=== PATIENT | female | born 1995 | race Caucasian/White ===

== ENCOUNTER 2020-06-27 23:20 | Inpatient (IN) ==
[2020-06-27] MEDS ORDERED: PENICILLIN G POTASSIUM 6 MU in DEXTROSE 5% 250 ML IV STA (23:56)
[2020-06-28] MEDS ORDERED: OXYTOCIN 30 UNITS/500 ML BAG IV PRN ×2 (00:02→14:09)
[2020-06-28] MEDS: LACTATED RINGER'S 1,000 ML IV PRN ×3 (00:09→08:51)
[2020-06-28 00:48] LABS: Hematocrit (blood only) 37.9 % (37-47); Hemoglobin 12.6 g/dL (12.0-16.0); Mean Corpuscular Hemoglobin 30.9 pg (25-34); Mean Corpuscular Hgb Conc 33.2 g/dL (32-36); Mean Corpuscular Volume 92.9 fL (80-100); Mean Platelet Volume 13.4 fL (7.4-10.4); Platelet Count 107 K/uL (130-400); RDW Coefficient of Variation 13.5 % (11.5-14.5); RDW Standard Deviation 46.3 fL (36.4-46.3); Red Blood Count 4.08 M/uL (4.2-5.4); White Blood Count 11.79 K/uL (4.8-10.8)
[2020-06-28 00:49] LABS: Platelet Estimate Decreased (Normal)
[2020-06-28] MEDS ORDERED: BUPIVACAINE 0.25% 30 ML VIAL ONE (01:04)
[2020-06-28] MEDS ORDERED: ePHEDrine sulfate 50 MG/ML AMP ONE (01:04)
[2020-06-28] MEDS ORDERED: SODIUM CHLORIDE 0.9% INJ 10 ML VIAL ONE (01:04)
[2020-06-28] MEDS ORDERED: fentaNYL citrate 100 MCG/2 ML VIAL ONE (01:04)
[2020-06-28] MEDS ORDERED: fentaNYL 2MCG/ML ROPIVACAINE 1.25MG/ML 100 ML BAG EPI ONE (01:05)
[2020-06-28] MEDS ORDERED: ONDANSETRON INJ 2 MG/ML 2 ML VIAL IV PRN (01:36)
[2020-06-28] MEDS ORDERED: ePHEDrine sulfate 50 MG/ML AMP IV PRN (01:36)
[2020-06-28] MEDS ORDERED: NALOXONE HCL 1 MG in SODIUM CHLORIDE 0.9% 1000ML 1,000 ML IV PRN (01:36)
[2020-06-28] MEDS ORDERED: NALOXONE HCL 0.4 MG/1 ML VIAL/CARP IV PRN (01:36)
[2020-06-28] MEDS ORDERED: PROMETHAZINE HCL 25 MG in SODIUM CHLORIDE 0.9% 50 ML IV PRN (01:36)
[2020-06-28] MEDS ORDERED: diphenhydrAMINE 50 MG/ML VIAL IV PRN (01:36)
--- NOTE | 2020-06-28 01:36 | Anesthesiology Consultation ---
Date of Service June 28, 2020 Assessment & Plan ASA ASA2 Proposed Anesthesia Anesthesia Type: Labor Epidural Risk / Benefits Reviewed With: PT / POA / Parent / Guardian, Accepts Plan and Informed Consent Obtained Additional Comments: decreased platelets but acceptable. History Height/Weight Height: 5 ft 7 in Weight: 93.894 kg Allergies Allergy/AdvReac Type Severity Reaction Status Date / Time No Known Drug Allergies Allergy Verified 06/26/20 09:14 Medications Home Medications Medication Instructions Recorded Confirmed Last Taken prenat.vits,earnest,kxg-diro-arhxm 1 tab PO DAILY 11/16/19 06/27/20 06/27/20 08:00 Active Medications Generic Name Dose Route Start Last Admin Trade Name Freq PRN Reason Stop Dose Admin Lactated Ringer's 1,000 mls @ 125 mls/hr 06/27/20 23:56 06/28/20 01:10 Lr IV 06/29/20 23:55 999 mls/hr .Q8H PRN Infusion L&D Protocol Protocol Past Medical History Medical History Abnormal biochemical finding on screening of mother, antepartum Abnormal menses Encounter for anatomic survey Varicella vaccine Exercise / Class Metabolic Activity II 4-5 Yardwork/Stairs/Walk up hill Past Family History Family History Grandfather Lupus Colorectal cancer Grandmother Melanoma Other Heart disease Past Surgical History Surgical History [place] teeth removed Past Anesthesia History No Hx of Anesthesia Complications and No Family Hx of Anesthesia Complications History of PONV No Hx of PONV and No Hx of Motion Sickness Social History Smoking Status: Never smoker Do You Dip or Chew Tobacco: No Hx Alcohol Use: No Hx Substance Use: No Review of Systems denies fever/cough/ colds/ chest pain/ SOB/ TALI denies TALI Physical Exam Vital Signs Last Vital Signs Temp 36.7 C 06/27/20 23:38 Pulse 92 H 06/28/20 01:56 Resp 20 06/27/20 23:38 BP 122/83 06/28/20 01:55 Pulse Ox 98 06/28/20 01:56 ENMT Mouth: no TMJ abnormality and no dentition abnormality Thyromental Distance: > or= 3.5 Finger Breadths Mallampati Class: II Neck neck extension not limited Respiratory normal respiratory effort; no respiratory distress Auscultation: lungs clear to auscultation bilaterally Cardiovascular Rate/Rhythm: regular rate and regular rhythm Neurologic moves all extremities Psychiatric Orientation: alert and oriented x 3 Testing Laboratory Results 06/28/20 00:11
[2020-06-28] MEDS: PENICILLIN G POTASSIUM 3 MU in DEXTROSE 5% 100 ML IV PRN ×3 (04:02→12:51)
--- NOTE | 2020-06-28 04:45 | History & Physical Report ---
Date of Service June 28, 2020 Assessment & Plan (1) Prolonged , antepartum: -On admission patient's heart rate tracing category 2 with good accelerations and variability -Patient was very uncomfortable and anesthesia was consulted and an epidural was placed -Because of the GBS status, the patient was started on penicillin with a 6,000,000 unit loading dose then 3,000,000 units every 4 hours -During the second dose of penicillin the patient had rupture of membranes for m econium with a bradycardic episode - heart rate returned to baseline with positional change - scalp electrode was applied -Contractions have been spaced out since the epidural -We will see if the rupture of membranes increase the intensity -May require Pitocin augmentation if heart rate tracing allows Admission and Anticipated Discharge Date Admission Date: June 27, 2020 History of Present Illness Chief Complaint: Labor check Primary Care Provider: NO PCP The patient is a 24-year-old 2 para 0, with an EDC of 25 June by dates and first trimester ultrasound, who presents to labor and delivery at 40+ weeks gestational age in early active labor. Patient states the contractions began at approximately 2000 hrs. on 27 June. Contractions increased in intensity, patient denied leaking of fluid or vaginal bleeding. The patient has had a benign course. Her blood type is A+, antibody negative, rubella immune, hepatitis B negative, she had a negative cell free DNA screen, she declined cystic fibrosis, SMA, and maternal serum AFP. She had an elevated 1 hour Glucola 28 weeks with a normal 2-hour glucose tolerance test. The patient had GBS positive vaginal culture in the first trimester. Allergies Allergy/AdvReac Type Severity Reaction Status Date / Time No Known Drug Allergies Allergy Verified 06/26/20 09:14 Home Medications Medication Instructions Recorded Confirmed Type prenat.vits,earnest,soi-uvkg-duxim 1 tab PO DAILY 11/16/19 06/27/20 History Patient History Medical History Abnormal biochemical finding on screening of mother, antepartum Abnormal menses Encounter for anatomic survey Varicella vaccine Surgical History [place] teeth removed Family History Grandfather Lupus Colorectal cancer Grandmother Melanoma Other Heart disease Social History (Updated 11/16/19 @ 13:44 by Faith Pitt) Smoking Status: Never smoker Second Hand Exposure: No; Do You Dip or Chew Tobacco: No; Hx Alcohol Use: No Hx Substance Use: No Preferred Language: Citizen Of [place] Communication Ability: Effective Regulatory Submissions Associate Required: No Beliefs That Will Affect Care: None marital status: Single marital status details: Fiance: Osman Bowles 24, Current Living Situation: Significant Other Current Living Situation Comment: lives with FOB, 2 dogs,4 horses Other Information That Helps Us Care for You: No Feels Safe at Home: Yes Safety Concerns: Feels Safe At This Time Physical Exam Constitutional: WD/WN, vitals as above Respiratory: Auscultation: lungs clear to auscultation bilaterally Cardiovascular: RRR, no murmur, no edema Extremities: no calf tenderness Gastrointestinal (Abdomen): Abdomen: gravid, vtx, (+) FHT's, EFW 8 lbs Genitourinary: Cervix- 4/90/-2. meconium fluid, FSE applied Results & Data ([facility]) Vital Signs (Past 12 Hours) Vital Signs Temp Pulse Resp BP Pulse Ox 06/28/20 04:41 86 100 06/28/20 04:36 79 99 06/28/20 04:31 83 98 06/28/20 04:30 93 H 139/83 06/28/20 04:26 87 97 06/28/20 04:21 91 H 98 06/28/20 04:16 87 98 06/28/20 04:15 90 114/73 06/28/20 04:11 85 99 06/28/20 04:06 93 H 99 06/28/20 04:01 91 H 99 06/28/20 04:00 82 20 113/72 06/28/20 03:56 80 99 06/28/20 03:51 76 99 06/28/20 03:47 76 113/68 06/28/20 03:46 77 99 06/28/20 03:41 83 99 06/28/20 03:36 73 100 06/28/20 03:31 88 105/57 L 99 06/28/20 03:30 20 06/28/20 03:26 72 99 06/28/20 03:21 80 99 06/28/20 03:16 84 106/65 98 06/28/20 03:11 79 99 06/28/20 03:06 86 99 06/28/20 03:01 74 99 06/28/20 03:00 81 111/73 06/28/20 02:56 78 98 06/28/20 02:51 81 100 06/28/20 02:47 73 124/64 06/28/20 02:46 83 100 06/28/20 02:41 75 99 06/28/20 02:36 81 100 06/28/20 02:32 75 109/72 06/28/20 02:31 75 99 06/28/20 02:30 18 06/28/20 02:26 76 99 06/28/20 02:21 84 99 06/28/20 02:16 87 99 06/28/20 02:15 90 20 129/72 06/28/20 02:11 93 H 98 06/28/20 02:10 86 20 140/81 06/28/20 02:06 91 H 99 06/28/20 02:05 95 H 132/76 06/28/20 02:04 20 06/28/20 02:01 87 98 06/28/20 02:00 98.1 F 91 H 20 136/85 06/28/20 01:56 92 H 98 06/28/20 01:55 95 H 20 122/83 06/28/20 01:53 90 141/98 H 06/28/20 01:52 97 H 127/91 06/28/20 01:51 99 H 99 06/28/20 01:50 110 H 20 151/79 H 06/28/20 01:47 93 H 142/88 H 06/28/20 01:46 106 H 97 06/28/20 01:41 100 H 99 06/28/20 01:36 105 H 99 06/28/20 01:31 94 H 97 06/28/20 01:26 103 H 99 06/28/20 01:21 98 H 99 06/28/20 01:16 99 H 98 06/28/20 01:15 94 H 144/94 H 06/28/20 01:11 91 H 100 06/27/20 23:38 98.1 F 20 06/27/20 23:36 85 130/87 12/15/20 23:35 98.1 F 20 Coding Level of Care Code None Diagnoses Prolonged , antepartum O48.1
[2020-06-28] MEDS: fentaNYL 2MCG/ML ROPIVACAINE 1.25MG/ML 100 ML BAG EPI PRN ×2 (08:46→14:31)
[2020-06-28] MEDS: OXYTOCIN 30 UNITS/500 ML BAG IV PRN ×2 (13:45→14:35)
[2020-06-28] MEDS ORDERED: BENZOCAINE 20% AER SPR 82.5 GM CAN EXT PRN (14:09)
[2020-06-28] MEDS ORDERED: bisacodyL 10 MG SUPP PR PRN (14:09)
[2020-06-28] MEDS ORDERED: ACETAMINOPHEN 325 MG TAB PO PRN (14:09)
[2020-06-28] MEDS ORDERED: SUPERCREAM 0.870% 15 GM JAR EXT PRN (14:09)
[2020-06-28] MEDS ORDERED: HYDROCORTISONE ACETATE 25 MG SUPP PR PRN (14:09)
[2020-06-28 14:59] LABS: Platelet Count 88 K/uL (130-400); Platelet Estimate Decreased (Normal)
--- NOTE | 2020-06-28 15:42 | Anesthesia Procedure Note ---
Date of Service June 28, 2020 Anesthesia Post Epidural Note Vital Signs Vital Signs: Temp Pulse Resp BP Pulse Ox 36.4 C L 92 H 18 120/78 95 06/28/20 12:53 06/28/20 15:30 06/28/20 15:30 06/28/20 15:30 06/28/20 13:36 Notes Mental Status: alert / awake / arousable Nausea / Vomiting: adequately controlled Pain: adequately controlled Airway Patency, RR, SpO2: stable & adequate BP & HR: stable & adequate Hydration State: stable & adequate Neuraxial Anesthesia: was administered and sensory block is resolving Anesthetic Complications: no major complications apparent and Pt Satisfied with anesthetic care Epidural: Removed without complications and With tip intact
[2020-06-28] MEDS: IBUPROFEN 600 MG TAB PO PRN ×2 (15:45→19:53)
--- NOTE | 2020-06-28 16:30 | Delivery Summary ---
DATE OF OPERATION: 06/28/2020 PROCEDURE: Normal spontaneous vaginal delivery with sulcal laceration and periurethral laceration repair. SURGEON: Earle Everett MD. PREOPERATIVE DIAGNOSES: 1. Single intrauterine at 40 weeks 3 days gestational age. 2. Group B Streptococcus positive. 3. Labor. POSTOPERATIVE DIAGNOSES: 1. Single intrauterine at 40 weeks 3 days gestational age. 2. Group B Streptococcus positive. 3. Labor. 4. Status post procedure. ESTIMATED BLOOD LOSS: 300 mL. DRAINS: Straight cath at the completion of the case for 100 mL. URINE OUTPUT: As above. COMPLICATIONS: None. FINDINGS: Viable with weight pending and Apgars of 7 and 9 at one and five minutes respectively. DESCRIPTION OF PROCEDURE: The patient progressed to 10 cm dilated, 100% effaced, +2 station, pushed over an intact perineum with epidural anesthesia and delivered a viable with weight and Apgars as noted above. Head of the delivered in SHAYAN position, restituted to right transverse. A nuchal cord was noted, which was easily reduced. Body and shoulders quickly followed. was delivered to the maternal abdomen and after approximately 15-20 seconds of stimulation, was noted to become vigorous. A 1-minute delayed cord clamping was then initiated, after which the cord was double clamped and cut. remained on maternal abdomen. Cord blood was then obtained. Attention was then turned towards delivery of the placenta, which delivered intact with 3-vessel cord, gentle cord traction. On inspection of perineum, vagina, and cervix, there was noted to be a left sulcal laceration and a periurethral laceration. Both lacerations were repaired with 3-0 Vicryl with interrupted stitch. Needle, sponge and instrument counts were correct at the completion of the case. Both mother and were stable in the immediate post-delivery period. I attest to the content of the Intraoperative Record and any orders documented therein. Any exception s are noted below.
[2020-06-28] MEDS ORDERED: DOCUSATE SODIUM 100 MG CAP PO ONE (19:51)
[2020-06-28] MEDS: DOCUSATE SODIUM 100 MG CAP PO SCH (19:53)
[2020-06-29] MEDS: IBUPROFEN 600 MG TAB PO PRN ×3 (04:05→16:37)
--- NOTE | 2020-06-29 07:05 | Obstetrical Progress Note ---
Date of Service <Kyler Chaudhari MD - Last Filed: 06/29/20 08:07> June 29, 2020 Assessment & Plan <Kyler Chaudhari MD - Last Filed: 06/29/20 08:07> (1) state: 24 y/o s/p at 40w3d, PPD1. A+. Rubella immune. Stable. - Meeting PPD1 milestones except for bowel movement. Ambulating, voiding, eating. . - continue routine care - tentative dispo tomorrow because this is patient's first delivery (2) Thrombocytopenia: - Hb 12.6->9.9 before vs after delivery - Plts 107->88 before vs after delivery. - no hx chtn. normotensive this AM at 121/77. 147/95 elevated BP x1 yesterday evening. Occasional elevated BP during labor admission. consider preeclampsia workup Subjective <Kyler Chaudhari MD - Last Filed: 06/29/20 08:07> Ambulation: ambulating normally Voiding: no voiding problems Passing Gas:: Yes Diet Tolerance:: regular diet Lochia:: Moderate Feeding Type:: breast feeding Current Pain Level(1-10): 2 + flatus, no BM. Tolerating regular diet. No complaints. Review of Systems Denies fever, chills, sweats Denies shortness of breath, chest pain, palpitations. Denies breast pain. Denies dysuria. Denies headache Denies nausea/vomiting. Denies numbness, tingling, weakness. Physical Exam <Kyler Chaudhari MD - Last Filed: 06/29/20 08:07> General: Alert, oriented. No acute distress. Cardiac: Regular rate and rhythm, no murmurs/rubs/gallops. Respiratory: Clear to auscultation bilaterally, no wheezes/rales/rhonchi. No respiratory distress. Abdomen: , soft, nontender. Uterus: Uterine fundus firm, palpable 1cm below umbilicus. Lower Extremities: Trace pedal edema. No deep calf pain. Socrates's negative bilaterally. Results & Data ([facility]) <Kyler Chaudhari MD - Last Filed: 06/29/20 08:07> Vital Signs (Past 12 Hours) Vital Signs Temp Pulse Pulse Resp BP BP Pulse Ox 06/29/20 03:15 36.5 C 79 16 121/77 97 06/28/20 23:45 36.4 C L 86 20 118/69 97 06/28/20 19:45 36.9 C 93 H 18 147/95 H 97 Medications Administered <Earle Everett MD - Last Filed: 06/29/20 09:22> Co-Signing Physician Notes Patient seen and evaluated and agree with the above findings and plan. Will continue to monitor BPs which have been normotensive since delivery. Denies PIH symptoms. Routine care
[2020-06-29 07:18] LABS: Hematocrit (blood only) 29.8 % (37-47); Hemoglobin 9.9 g/dL (12.0-16.0)
[2020-06-29] MEDS: PRENATAL VITAMIN 1 TAB PO SCH (08:35)
[2020-06-29] MEDS: DOCUSATE SODIUM 100 MG CAP PO SCH ×2 (08:35→21:19)
[2020-06-29] MEDS ORDERED: DIPHTHERIA/TETANUS/PERTUSSIS 0.5 ML SYR/VIAL IM ONE (09:00)
[2020-06-29] MEDS ORDERED: bisacodyL 5 MG TABEC PO SCH (20:00)
[2020-06-30] MEDS: IBUPROFEN 600 MG TAB PO PRN ×2 (02:26→08:33)
--- NOTE | 2020-06-30 06:41 | Obstetrical Progress Note ---
Date of Service <Kyler Chaudhari MD - Last Filed: 06/30/20 06:51> June 30, 2020 Assessment & Plan <Kyler Chaudhari MD - Last Filed: 06/30/20 06:51> (1) state: 24 y/o s/p at 40w3d, PPD2. A+. Rubella immune. Stable. - Meeting milestones. Ambulating, voiding, eating. Had BM. . - continue routine care - dispo today. (2) Thrombocytopenia: - Hb 12.6->9.9 before vs after delivery - Plts 107->88 before vs after delivery. - no hx chtn. BPs ok overnight. - check CBC at follow up. Subjective <Kyler Chaudhari MD - Last Filed: 06/30/20 06:51> Ambulation: ambulating normally Voiding: no voiding problems Passing Gas:: Yes Diet Tolerance:: regular diet Lochia:: Moderate Feeding Type:: breast feeding Current Pain Level(1-10): 0 Motrin is helping with pain. Lochia is moderate, but slowing down some. No new concerns today. Review of Systems Denies fever, chills, sweats Denies shortness of breath, chest pain, palpitations. Denies breast pain. Denies dysuria. Denies headache or changes in vision. Denies nausea/vomiting. Denies numbness, tingling, weakness. Physical Exam <Kyler Chaudhari MD - Last Filed: 06/30/20 06:51> General: Alert, oriented. No acute distress. Cardiac: Regular rate and rhythm, no murmurs/rubs/gallops. Respiratory: Clear to auscultation bilaterally, no wheezes/rales/rhonchi. No respiratory distress. Abdomen: , soft. Uterus: Uterine fundus firm, palpable at umbilicus. Lower Extremities: No lower extremity edema or swelling. No deep calf pain. Socrates's negative bilaterally. Results & Data ([facility]) <Kyler Chaudhari MD - Last Filed: 06/30/20 06:51> Vital Signs (Past 12 Hours) Vital Signs Temp Pulse Resp BP 06/30/20 03:50 36.3 C L 70 20 137/87 06/30/20 00:20 36.8 C 108 H 16 123/82 06/29/20 21:05 37 C 92 H 18 121/82 Medications Administered <Oliva Belcher MD - Last Filed: 06/30/20 07:17> Co-Signing Physician Notes Resident Physician Supervision Note: I interviewed and examined the patient. Discussed with Dr. Chaudhari and agree with findings and plan as documented in the note. Any exceptions or clarifications are listed here: PP2 s/p . Doing well and meeting all pp milestones. Stable for discharge home today Documented By: Oliva Belcher MD
[2020-06-30] MEDS: DOCUSATE SODIUM 100 MG CAP PO SCH (08:33)
[2020-06-30] MEDS: PRENATAL VITAMIN 1 TAB PO SCH (08:33)
== END 2020-06-30 11:40 | disposition home or self-care (01) | DRG 806 ==
LOC: 4S1 23:20 → OPB 23:20 → 4S1 23:56 → 4S2 06-28 17:25

== ENCOUNTER 2022-01-11 12:43 | Inpatient (IN) ==
[2022-01-11] MEDS ORDERED: LACTATED RINGER'S 1,000 ML IV SCH ×2 (13:45→17:53)
[2022-01-11 14:26] LABS: Basophils # (auto) 0.01 K/uL (0-0.2); Basophils % (auto) 0.1 %; Eosinophils # (auto) 0.03 K/uL (0-0.5); Eosinophils % (auto) 0.3 %; Hematocrit (blood only) 33.2 % (37-47); Hemoglobin 10.9 g/dL (12.0-16.0); Immature Granulocytes # (auto) 0.04 K/uL (0.00-0.02); Immature Granulocytes % (auto) 0.4 %; Lymphocytes # (auto) 1.48 K/uL (1.2-3.4); Lymphocytes % (auto) 14.7 %; Mean Corpuscular Hemoglobin 29.4 pg (25-34); Mean Corpuscular Hgb Conc 32.8 g/dL (32-36); Mean Corpuscular Volume 89.5 fL (80-100); Mean Platelet Volume 11.8 fL (7.4-10.4); Neutrophils % (auto) 80.5 %; Platelet Count 147 K/uL (130-400); RDW Coefficient of Variation 13.2 % (11.5-14.5); RDW Standard Deviation 43.3 fL (36.4-46.3); Red Blood Count 3.71 M/uL (4.2-5.4); White Blood Count 10.06 K/uL (4.8-10.8)
[2022-01-11] MEDS ORDERED: MoRPHine SULFATE PF 1 MG/ML 10 ML AMP/VIAL ONE (14:43)
[2022-01-11] MEDS ORDERED: fentaNYL citrate 100 MCG/2 ML VIAL ONE (14:43)
--- NOTE | 2022-01-11 14:53 | Anesthesiology Consultation ---
Date of Service January 11, 2022 Assessment & Plan (1) Encounter for pre-operative examination: Chart Review Chart Review: Acceptable Risk for Surgery and Patient NOT seen in Pre Admission Testing Consults Requested none History Surgery Operation Date: 01/11/22 13:00 Proposed Procedures p Section in LD - Shanna MackayDO dewey Height/Weight Height: 5 ft 7 in Weight: 91.172 kg Allergies Allergy/AdvReac Type Severity Reaction Status Date / Time No Known Drug Allergies Allergy Verified 01/11/22 09:19 Medications Home Medications Medication Instructions Recorded Confirmed Last Taken prenat.vits,earnest,kva-hhct-fmlkn 1 tab PO DAILY 11/16/19 01/11/22 07/18/21 acetaminophen 325 mg tablet 650 mg PO Q6H PRN 07/19/21 01/11/22 Unknown Past Medical History Medical History Abnormal biochemical finding on screening of mother, antepartum Abnormal menses Encounter for anatomic survey Varicella vaccine Exercise / Class Metabolic Activity II 4-5 Yardwork/Stairs/Walk up hill Past Family History Family History Grandfather Lupus Colorectal cancer Grandmother Melanoma Grandfather (Paternal) Diabetes Other Heart disease Denies family history of Ovarian cancer Breast cancer Past Surgical History Surgical History [place] teeth removed Past Anesthesia History No Hx of Anesthesia Complications and No Family Hx of Anesthesia Complications History of PONV No Hx of PONV and No Hx of Motion Sickness Social History Smoking Status: Never smoker Do You Dip or Chew Tobacco: No Hx Alcohol Use: No Hx Substance Use: No substance use type: does not use Physical Exam Vital Signs Last Vital Signs Temp 36.9 C 01/11/22 14:33 Pulse 93 H 01/11/22 12:50 Resp 20 01/11/22 14:33 BP 121/71 01/11/22 12:50 Testing Laboratory Results 01/11/22 14:08
[2022-01-11] MEDS ORDERED: CITRIC ACID/SODIUM CITRATE 15 ML UDC PO SCH (15:15)
[2022-01-11] MEDS ORDERED: ceFAZolin 2000MG 2,000 MG/15 ML SYR IV SCH (15:16)
--- NOTE | 2022-01-11 15:30 | History & Physical Report ---
Date of Service January 11, 2022 Assessment & Plan (1) Oligohydramnios: (2) Breech presentation: Plan: Admit to L&D. Discussed plans with patient. Reviewed risks, benefits, alternatives. Plan is for primary section for breech, with tubal sterilization. Discussed that we will look at her tubes when we are in the OR - she would prefer removal of tubes if possible, agreeable to Filshie clips if unable to remove tubes d/t anatomy. Admission and Anticipated Discharge Date Admission Date: January 11, 2022 History of Present Illness Chief Complaint: oligohydramnios, breech presentation Primary Care Provider: NO PCP 26yo @ 36 12/18, presented to office today for US for SAMANTHA/DVP. She was undergoing the US d/t breech presentation, in advance of external cephalic version. She was found to be breech, but there was only one measurable DVP, measuring 1.5cm. She was directed to L&D for delivery d/t oligohydramnios. She also desires tubal sterilization - states she has completed childbearing, has no desire for future pregnancies. She is aware that undergoing tubal sterilization will render her unable to have future children. She has previously signed informed consent in the office under no duress. Allergies Allergy/AdvReac Type Severity Reaction Status Date / Time No Known Drug Allergies Allergy Verified 01/11/22 09:19 Home Medications Medication Instructions Recorded Confirmed Type prenat.vits,earnest,lcm-aahj-dtutl 1 tab PO DAILY 01/11/22 01/11/22 History Patient History Medical History Abnormal biochemical finding on screening of mother, antepartum Abnormal menses Encounter for anatomic survey Varicella vaccine Surgical History [place] teeth removed Family History Grandfather Lupus Colorectal cancer Grandmother Melanoma Grandfather (Paternal) Diabetes Other Heart disease Denies family history of Ovarian cancer Breast cancer Social History Smoking Status: Never smoker Second Hand Exposure: No; Do You Dip or Chew Tobacco: No; Hx Alcohol Use: No Hx Substance Use: No Preferred Language: [place] Communication Ability: Effective Document Control Specialist Required: No Beliefs That Will Affect Care: None marital status: Single marital status details: Fiance: Osman Bowles 26, Current Living Situation: Significant Other Current Living Situation Comment: lives with FOB, daughter, 2 dogs current occupational status: employed current occupation: Private Contractor Other Information That Helps Us Care for You: No Feels Safe at Home: Yes Safety Concerns: Feels Safe At This Time Assistive Devices: None Review of Systems All systems reviewed & are unremarkable except as noted in HPI & below Physical Exam Physical Exam: FHT Cat 1 [place] none Constitutional: WD/WN, vitals as above Respiratory: normal respiratory effort, lungs clear to auscultation no respiratory distress Cardiovascular: Rate/Rhythm: regular rate and regular rhythm Gastrointestinal (Abdomen): Inspection/Auscultation: abdomen normal to inspection Percussion/Palpation: abdomen soft; abdomen nontender Gravid. No s/s chorio or abruption. Skin: no rashes, warm and dry Psychiatric: A+Ox3, euthymic affect Results & Data ([facility]) Vital Signs (Past 12 Hours) Vital Signs Temp Pulse Resp BP 01/11/22 15:25 96 H 129/78 01/11/22 14:33 36.9 C 20 01/11/22 12:50 36.9 C 93 H 20 121/71 Code Status & VTE Plan VTE Prophylaxis Plan VTE Prophylaxis will be ordered: Yes Coding Level of Care Code None Diagnoses Oligohydramnios O41.00X0 Breech presentation O32.1XX0
[2022-01-11] MEDS ORDERED: BETAMETH SOD PHOS/ACETATE IA 6 MG/ML IM STA (15:36)
[2022-01-11] MEDS ORDERED: OXYTOCIN 10 UNITS/ML 10ML VIAL ONE (16:13)
[2022-01-11] MEDS ORDERED: ONDANSETRON INJ 2 MG/ML 2 ML VIAL ONE (16:13)
[2022-01-11] MEDS ORDERED: PHENYLEPHRINE HCL 10 MG/ML VIAL ONE (16:13)
[2022-01-11] MEDS ORDERED: NALOXONE HCL 0.08 MG in SYRINGE 1.8 ML IV PRN (16:27)
[2022-01-11] MEDS ORDERED: NALOXONE HCL 1 MG in SODIUM CHLORIDE 0.9% 1000ML 1,000 ML IV PRN (16:27)
[2022-01-11] MEDS ORDERED: NALBUPHINE HCL INJ 10 MG/ML AMP IV PRN (16:27)
[2022-01-11] MEDS ORDERED: LACTATED RINGER'S 500 ML IV PRN (16:27)
[2022-01-11] MEDS ORDERED: diphenhydrAMINE 50 MG/ML VIAL IV PRN (16:27)
[2022-01-11] MEDS ORDERED: ONDANSETRON INJ 2 MG/ML 2 ML VIAL IV PRN ×2 (16:27→17:53)
[2022-01-11] MEDS ORDERED: PROMETHAZINE HCL 6.25 MG in SODIUM CHLORIDE 0.9% 50 ML IV PRN (16:27)
[2022-01-11] MEDS ORDERED: MoRPHine SULFATE PF 1 MG/ML 10 ML AMP/VIAL INT SPINAL ONE (16:27)
[2022-01-11] MEDS ORDERED: HYDROmorphone INJ 0.5 MG/0.5 ML SYR IV PRN (16:27)
[2022-01-11] MEDS ORDERED: ePHEDrine sulfate 50 MG/ML AMP IV PRN (16:27)
[2022-01-11] MEDS ORDERED: MoRPHine SULFATE 2 MG/ML CARP IV PRN (16:27)
[2022-01-11] MEDS ORDERED: NALOXONE HCL 0.4 MG/1 ML VIAL/CARP IV PRN (16:27)
[2022-01-11] MEDS ORDERED: SODIUM CHLORIDE 0.9% 1000ML 1,000 ML IV SCH (16:30)
[2022-01-11] MEDS ORDERED: NO NARCOTICS OR SEDATIVES SCH (16:30)
[2022-01-11 17:27] LABS: Base Excess Cord Arterial Bld -1.5 mEq/L (-9-1.8); CO2 Cord Arterial Blood 47 mmHg (39.1-73.5); HCO3 Cord Arterial Blood 25 mmol/L (19.7-28.5); Oxygen Sat Cord Arterial Blood < 60.0 % (<60); PO2 Cord Arterial Blood 23 mmHg (4.1-31.7); pH Cord Arterial Blood 7.33 (7.1-7.38)
[2022-01-11 17:30] LABS: Base Excess Cord Venous Blood -1.3 mEq/L (-7.7-1.9); Cord Venous Blood HCO3 24 mmol/L (18.4-26.8); Cord Venous Blood PCO2 40 mmHg (30.4-57.2); Cord Venous Blood PO2 31 mmHg (14.1-43.3); Cord Venous Blood pH 7.38 (7.20-7.44); O2 Saturation Cord Venous Bld 64.9 % (<68)
--- NOTE | 2022-01-11 17:33 | Operative Report ---
PG Post Operative Report Pre & Post Diagnosis Operation Date: 01/11/22 13:00 Pre-Op Diagnosis: 36 weeks oligohydramnios breech presentation Post-Op Diagnosis: 36 weeks oligohydramnios breech presentation I identified the patient and participated in the time-out.: Yes Procedure Operation Date: 01/11/22 13:00 Primary low transverse section, bilateral salpingectomy Surgeon Shanna Brito DO Client Advocate Sami Cain DO Estimated Blood Loss 500 Findings Consistent with Post-Op Diagnosis Viable female , Apgars 9/9. Weight pending, please see nursing notes. Specimens Placenta, cord blood, cord gas. Drains potts clear yellow Anesthesia Type Spinal Complications none Disposition Accompanied Patient To Recovery: No Disposition: L&D Indications 26yo @ 36 6, breech presentation and oligohydramnios, desire for tubal sterilization. Description of Procedure The patient was seen in her labor and delivery room, risks benefits and alternatives to surgery were reviewed. Informed consent obtained. Questions were answered. She was taken to the operating room, spinal anesthesia was administered. She was then prepared and draped in the usual sterile fashion in the supine position with a leftward tilt. Timeout was confirmed. A Pfannenstiel skin incision was made with a scalpel, and carried through to the underlying layer of fascia. Fascia was nicked at midline, and this incision was extended bilaterally. The superior aspect of the fascial incision was grasped with Adriane clamps x2, elevated off the underlying rectus abdominis muscles, and dissected sharply and bluntly. In similar fashion, the inferior aspect of the fascial incision was dissected. The rectus abdominis muscles were , and the peritoneum was entered bluntly digitally. This was extended bilaterally. The bladder flap was taken down carefully using Metzenbaum scissors. Using a new scalpel, a low transverse uterine incision was created. Clear amniotic fluid noted. The was delivered from a benjy breech presentation. The buttocks delivered, followed by both legs swept midline. then the torso was delivered and bilateral arms swept midline. The baby was wrapped in a towel and the head was delivered. Spontaneous cry on the field. The cord was doubly clamped and cut, and the was handed off to the waiting felt checker. A segment was retained for cord gases. Cord blood was obtained. The placenta was delivered spontaneously intact. The uterus was exteriorized, and cleared of all clots and debris. The hysterotomy incision was reapproximated using 0 Vicryl in a running locked stitch. A second layer of the same suture was used to imbricate the incision. Posterior uterus was evaluated and normal. Bilateral fallopian tubes were identified to their fimbria. Using the Ligasure device, the right fallopian tube was coagulated and transected from its mesosalpinx. This was then coagulated and transected from the uterus. In a similar fashion, left fallopian tube was transected. Both were sent to path. Excellent hemostasis. The uterus was returned to the abdomen, and gutters were cleared of clots and debris. Excellent hemostasis was observed. The fascial incision was reapproximated using 0 Vicryl in a running stitch. The subcutaneous tissue was irrigated, and reapproximated using 2-0 plain gut in a running stitch. The skin was reapproximated using 4-0 Vicryl in a running subcuticular stitch. Steri-Strips and a bandage were applied. The patient tolerated the procedure well, and will be taken to the recovery area in stable and good condition. Sponge, needle, instrument counts correct x 2. I attest to the content of the Intraoperative Record and any orders documented therein. Any exceptions are noted below. OB Procedure Charges [id number] Add on Tubal for C/S
[2022-01-11] MEDS ORDERED: DIPHTHERIA/TETANUS/PERTUSSIS 0.5 ML SYR/VIAL IM ONE (17:53)
[2022-01-11] MEDS ORDERED: PROMETHAZINE HCL 25 MG in SODIUM CHLORIDE 0.9% 50 ML IV PRN (17:53)
[2022-01-11] MEDS ORDERED: SENNA 8.6 MG TAB PO PRN (17:53)
[2022-01-11] MEDS ORDERED: BENZOCAINE 20% AER SPR 82.5 GM CAN EXT PRN (17:53)
[2022-01-11] MEDS ORDERED: HYDROCORTISONE ACETATE 25 MG SUPP PR PRN (17:53)
[2022-01-11] MEDS ORDERED: MAGNESIUM HYDROXIDE SUSP 30 ML UDC PO PRN (17:53)
--- NOTE | 2022-01-11 18:21 | Anesthesiology Progress Note ---
Date of Service January 11, 2022 Anesthesia Post Procedure Vital Signs Vital Signs: Temp Pulse Resp BP Pulse Ox 01/11/22 18:19 78 107/67 01/11/22 18:15 18 01/11/22 18:14 62 97 01/11/22 18:09 68 104/62 95 01/11/22 18:05 18 01/11/22 18:04 64 98 01/11/22 17:59 74 111/58 L 98 01/11/22 17:55 18 01/11/22 17:54 63 99 01/11/22 17:50 76 94 01/11/22 17:49 69 107/56 L 96 01/11/22 17:44 80 98 01/11/22 17:39 62 108/56 L 97 01/11/22 17:35 36.5 C 75 18 109/60 01/11/22 17:34 105 H 96 01/11/22 15:33 36.8 C 18 01/11/22 15:25 96 H 129/78 01/11/22 14:33 36.9 C 20 01/11/22 12:50 36.9 C 93 H 20 121/71 Transfer of Care Handoff Completed per policy Notes Mental Status: alert / awake / arousable and participated in evaluation Patient Amnestic to Procedure: No Nausea / Vomiting: adequately controlled Pain: adequately controlled Airway Patency, RR, SpO2: stable & adequate BP & HR: stable & adequate Hydration State: stable & adequate Neuraxial Anesthesia: was administered and sensory block is resolving Anesthetic Complications: no major complications apparent and Pt Satisfied with anesthetic care
[2022-01-11] MEDS: KETOROLAC 30 MG/ML VIAL IV PRN (18:27)
[2022-01-11] MEDS: OXYTOCIN 30 UNITS in LACTATED RINGER'S 1,000 ML IV SCH (19:21)
[2022-01-11] MEDS: SIMETHICONE 80 MG CHEW PO SCH (21:20)
[2022-01-11] MEDS: DOCUSATE SODIUM 100 MG CAP PO SCH (21:20)
[2022-01-12] MEDS: OXYTOCIN 30 UNITS in LACTATED RINGER'S 1,000 ML IV SCH (03:49)
[2022-01-12] MEDS: KETOROLAC 30 MG/ML VIAL IV PRN ×2 (03:49→09:32)
[2022-01-12] MEDS ORDERED: ceFAZolin 2000MG 2,000 MG/15 ML SYR IV SCH (06:00)
--- NOTE | 2022-01-12 07:09 | Obstetrical Progress Note ---
Date of Service January 12, 2022 Assessment & Plan (1) Encounter for care and examination after delivery: Plan: Patient is a 26-year-old female who delivered via at 36 and 6/7 weeks gestation with salpingectomy, postoperative day 1. complicated by oligohydramnios/breech position. -Continue routine care, keep today -GBS-, A+, antibody negative, rubella immune -Pain controlled with Percocet -Voiding trial later today -Encouraged ambulation -continue bottle feeding -6-week follow-up with Dr. Brito Admission and Anticipated Discharge Date Admission Date: January 11, 2022 Supervising Physician Co-Signing Physician Notes Resident Physician Supervision Note: I was present with Dr. Cain during the history and exam. I discussed the case with the resident and agree with the findings and plan as documented in the note. Any exceptions or clarifications are listed here: POD#1 doing well. Routine recovery. Documented By: Shanna Brito, DO Subjective Patient is a 26-year-old female who delivered via at 36 and 6/7 weeks gestation with salpingectomy, postoperative day 1. complicated by oligohydramnios/breech position. Patient overall doing well today. Pain controlled with Percocet. Medina catheter still in place so the patient has not been able to ambulate around the room. Patient has been able to eat and drink without nausea or vomiting. Patient is bottlefeeding baby. Lochia moderate and improving. Otherwise denies fever, chills, chest pain, shortness of breath, UTI symptoms, or headache. Patient has no other complaints at this time. Review of Systems Review of Systems: All systems reviewed & are unremarkable except as noted in HPI & below Physical Exam Constitutional: WD/WN, vitals as above Eyes: + anicteric sclerae Neck: trachea midline, no thyromegaly Respiratory: normal respiratory effort, lungs clear to auscultation Cardiovascular: RRR, no murmur, no edema Gastrointestinal (Abdomen): Inspection/Auscultation: abdomen normal to inspection Percussion/Palpation: + abdomen tender and abdomen soft Musculoskeletal: Head/Neck/Chest: normocephalic and head atraumatic Skin: no rashes, warm and dry There is a dry, healing surgical incision at the inferior abdomen without surrounding erythema or discharge Neurologic: moves all extremities Psychiatric: A+Ox3, euthymic affect Genitourinary: Uterine fundus palpated at the level of the umbilicus, firm Results & Data ([facility]) Vital Signs (Past 12 Hours) Vital Signs Temp Pulse Pulse Resp BP BP Pulse Ox 01/12/22 04:00 18 96 01/12/22 03:39 36.6 C 80 16 115/73 96 01/12/22 03:00 18 95 01/12/22 02:00 20 96 01/12/22 01:00 16 95 01/12/22 00:00 16 95 01/11/22 23:14 36.6 C 75 16 124/76 95 01/11/22 23:00 16 95 01/11/22 22:00 16 96 01/11/22 21:00 16 95 01/11/22 20:00 16 95 01/11/22 19:09 74 97/59 L 95 01/11/22 19:05 18 01/11/22 19:04 75 96 01/11/22 19:03 78 93 01/11/22 18:59 79 104/64 97 01/11/22 18:54 91 H 97 01/11/22 18:52 74 93 01/11/22 18:49 71 106/67 97 01/11/22 18:44 70 98 01/11/22 18:39 75 105/65 96 01/11/22 18:35 73 18 93 01/11/22 18:34 75 95 01/11/22 18:29 71 107/66 96 01/11/22 18:25 18 01/11/22 18:24 71 96 01/11/22 18:19 79 107/67 98 01/11/22 18:15 18 01/11/22 18:14 62 97 01/11/22 18:09 68 104/62 95 01/11/22 18:05 18 01/11/22 18:04 64 98 01/11/22 17:59 74 111/58 L 98 01/11/22 17:55 18 01/11/22 17:54 63 99 01/11/22 17:50 76 94 01/11/22 17:49 69 107/56 L 96 01/11/22 17:44 80 98 01/11/22 17:39 62 108/56 L 97 01/11/22 17:35 36.5 C 75 18 109/60 01/11/22 17:34 105 H 96
[2022-01-12] MEDS: PRENATAL VITAMIN 1 TAB PO SCH (08:38)
[2022-01-12] MEDS: DOCUSATE SODIUM 100 MG CAP PO SCH ×2 (08:38→20:59)
[2022-01-12] MEDS: FERROUS SULFATE 325 MG TAB PO SCH (08:38)
[2022-01-12] MEDS: SIMETHICONE 80 MG CHEW PO SCH ×4 (08:38→20:59)
[2022-01-12] MEDS ORDERED: NON-FORMULARY MEDICATION (Prenat.Vits,Cal,Min-Iron-Folic Tablet) PO SCH (09:00)
[2022-01-12 09:13] LABS: Hematocrit (blood only) 30.4 % (37-47); Hemoglobin 10.2 g/dL (12.0-16.0); Immature Granulocytes # (auto) 0.07 K/uL (0.00-0.02); Immature Granulocytes % (auto) 0.5 %; Lymphocytes # (auto) 1.29 K/uL (1.2-3.4); Mean Corpuscular Hemoglobin 29.1 pg (25-34); Mean Corpuscular Hgb Conc 33.6 g/dL (32-36); Mean Corpuscular Volume 86.6 fL (80-100); Mean Platelet Volume 11.8 fL (7.4-10.4); Monocytes # (auto) 0.81 K/uL (0.11-0.59); Monocytes % (auto) 5.6 %; Neutrophils # (auto) 12.21 K/uL (1.4-6.5); Neutrophils % (auto) 84.9 %; Platelet Count 159 K/uL (130-400); RDW Coefficient of Variation 13.1 % (11.5-14.5); RDW Standard Deviation 41.6 fL (36.4-46.3); Red Blood Count 3.51 M/uL (4.2-5.4); White Blood Count 14.38 K/uL (4.8-10.8)
[2022-01-12] MEDS ORDERED: DC INTRASPINAL MORPHINE SCH (10:27)
[2022-01-12] MEDS ORDERED: diphenhydrAMINE 50 MG/ML VIAL IV PRN (10:28)
[2022-01-12] MEDS ORDERED: KETOROLAC 30 MG/ML VIAL IV PRN (10:28)
[2022-01-12] MEDS ORDERED: diphenhydrAMINE Capsule 25 MG CAP PO PRN (10:28)
[2022-01-12] MEDS: oxyCODONE/ACETAMINOPHEN 5mg/325mg TAB PO PRN ×2 (14:28→20:59)
[2022-01-12] MEDS: IBUPROFEN 600 MG TAB PO PRN ×2 (14:28→20:59)
[2022-01-12] MEDS ORDERED: bisacodyL 5 MG TABEC PO SCH (20:00)
[2022-01-13] MEDS: IBUPROFEN 600 MG TAB PO PRN ×3 (02:50→14:25)
[2022-01-13] MEDS: oxyCODONE/ACETAMINOPHEN 5mg/325mg TAB PO PRN ×3 (02:51→14:24)
[2022-01-13 07:07] LABS: Hematocrit (blood only) 28.9 % (37-47); Hemoglobin 9.4 g/dL (12.0-16.0)
[2022-01-13] MEDS: DOCUSATE SODIUM 100 MG CAP PO SCH (08:31)
[2022-01-13] MEDS: FERROUS SULFATE 325 MG TAB PO SCH (08:31)
[2022-01-13] MEDS: PRENATAL VITAMIN 1 TAB PO SCH (08:31)
[2022-01-13] MEDS: SIMETHICONE 80 MG CHEW PO SCH ×2 (08:31→14:26)
--- NOTE | 2022-01-13 08:31 | Obstetrical Progress Note ---
Date of Service January 13, 2022 Assessment & Plan (1) Encounter for care and examination after delivery: Postoperative from section patient meets discharge criteria as she is ambulating well tolerating an oral diet has minimal bleeding and no extremity pain. Discharge instructions were reviewed and prescriptions were sent to her pharmacy of choice patient advised to call with any concerns and follow-up in the office discussed Subjective Ambulation: ambulating normally Voiding: no voiding problems Passing Gas:: Yes Diet Tolerance:: regular diet Lochia:: Small Physical Exam Gastrointestinal (Abdomen) normal bowel sounds, soft, nontender, no hepatosplenomegaly Results & Data ([facility]) Vital Signs (Past 12 Hours) Vital Signs Temp Pulse Resp BP Pulse Ox 01/12/22 23:05 97.5 F L 70 17 107/72 96
[2022-01-13] MEDS ORDERED: bisacodyL 10 MG SUPP PR PRN (17:26)
--- NOTE | 2022-01-16 08:15 | Discharge Summary ---
Date of Service January 16, 2022 Admission HPI Per Admitting Provider 26yo @ 36 12/18, presented to office today for US for SAMANTHA/DVP. She was undergoing the US d/t breech presentation, in advance of external cephalic version. She was found to be breech, but there was only one measurable DVP, measuring 1.5cm. She was directed to L&D for delivery d/t oligohydramnios. She also desires tubal sterilization - states she has completed childbearing, has no desire for future pregnancies. She is aware that undergoing tubal sterilization will render her unable to have future children. She has previously signed informed consent in the office under no duress. Discharge Data Consultations 01/11/22 13:41 Consult Anesthesiology Stat Procedures Performed Operation Date: 01/11/22 13:00 Actual Procedures p Section in - Shanna Brito DO Hospital Course (1) Encounter for supervision of normal in multigravida: Admitted for . Routine recovery, DC home. Followup PP6w. Coding Level of Care Code None Diagnoses Encounter for supervision of normal in multigravida Z34.80
== END 2022-01-13 15:15 | disposition home or self-care (01) | DRG 784 ==
LOC: 4S1 12:43 → 4E2 19:15